=== PATIENT | female | born 1940 | race Caucasian/White ===

== ENCOUNTER 2016-07-02 11:10 | Inpatient (IN) | payer MEDICARE ==
--- NOTE | ~2016-07-02 | HP ---
Unit #: [id number] #: [id number] Patient: ROSALIND YO [id number] [address] [place], [place] [address] [id number] I MR#: [id number] NAME: ROSALIND YO ROOM: 313 Age: 75 Sex: F Admission Date: 07/02/2016 : 1940 Attending Physician: Wilber Dunham M.D. Primary Care Physician: Alberto Cazares D.O. HISTORY AND PHYSICAL CHIEF COMPLAINT Recurrent falls. HISTORY OF PRESENT ILLNESS The patient is a 75-year-old female with history of diabetes, hypertension, and hypothyroidism. Brought to the emergency room from [facility] emergency department with recurrent falls and acute kidney injury and UTI. The patient stated the patient lives at the assisted living home and had a fall on Tuesday night while she was trying to get up from the bed to go to the bathroom. The patient stated that the patient was on the floor for four hours. The patient had recurrent falls again last night x2 and was presented to the emergency room with acute kidney injury and the patient was 79/47 with a sepsis. The patient is being admitted for the above reasons and denies any fever, chills, nausea, and vomiting. The patient complains of urinary frequency and the recurrent UTIs. 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 PAST SURGICAL HISTORY Left foot surgery, bilateral tubal ligation, partial thyroidectomy, resection of benign brain tumor, and C section. ALLERGIES Patient allergic to morphine, Naprosyn, and Neurontin. HOME MEDICATIONS She is on: 1. Xanax. 2. Synthroid. 3. Carbamazepine. 4. Zanaflex. 5. Oxycodone. 6. Lipitor. 7. Glucophage. FAMILY HISTORY Negative for GI or colon disease. SOCIAL HISTORY The patient is originally from [facility]. She is living alone in the [facility]. She stopped smoking 25 years ago. Seldom drinks Unit #: [id number] #: [id number] Patient: ROSALIND YO alcohol. REVIEW OF SYSTEMS Fourteen-point review of systems performed and only pertinent positive findings are described above and remaining are negative. PHYSICAL EXAMINATION GENERAL APPEARANCE: The patient is lying on her bed not in acute distress. VITAL SIGNS: Temperature 98.2, pulse 99, respiratory rate 16, blood pressure 79/47 at the time of arrival, and satting 96% at room air. HEENT: Head atraumatic and normocephalic. Pupils are equal, round, and reactive to light and accommodation. Dry mucous membranes. NECK: Supple. No JVD. LUNGS: Clear to auscultation bilaterally. No rhonchi. No wheezing. HEART: Regular rate and rhythm. ABDOMEN: Soft. Positive bowel sounds. Positive flank tenderness. EXTREMITIES: No cyanosis. No clubbing. NEUROLOGIC: Alert, awake, and oriented. No gross focal motor deficit. DIAGNOSTIC STUDIES LABORATORY: Glucose 127, BUN 48, creatinine 2.8, sodium 128, potassium 3.1, chloride 92, bicarb 21, calcium 8.5, magnesium 2.1, albumin 3.1, total bili 0.6, AST 162, ALT 90, and alkaline phosphatase 120. CK total is 1268 and troponin 0.06. Lactic acid is 2.6. WBC 9.5, hemoglobin 10.9, hematocrit 32.6, and platelets 320. UA shows 3+ leukocyte esterase, 3+ blood, WBCs innumerable, and bacteria 1. IMAGING: CT of the head shows generalized atrophy. No acute intracranial findings. Densely calcified, 2.8 cm mass overlying the left frontal region. This is parafalcine and consistent with a meningioma. It is unchanged since the last study. Postop changes of right mastoidectomy. Small chronic lacunar infarction, right basal ganglia. No acute intracranial findings. CT of the abdomen and pelvis shows no acute findings in the abdomen and pelvis. Postsurgical changes, left lower quadrant; status post hysterectomy; and multilevel degenerative disk disease. Chest x-ray shows low lung volume film with a lordotic disposition. There is no definite acute cardiopulmonary change. X-ray of the L spine shows there is a stable multilevel disk height loss and endplate spurring at L2-3, 3-4, and 4-5 greater than L5-S1. There is a mild facet arthropathy. Chronic sclerotic change, medial left ilium, unchanged. ASSESSMENT AND PLAN 1. UTI. 2. Sepsis. 3. Non-ST elevation [place]. 4. [place]ED[place]. 5. Rhabdomyolysis. PLAN: Admitted the patient to the inpatient with the telemetry. Continue with IV antibiotic with Rocephin. Replace the potassium per protocol and initiate the sepsis protocol as not initiated by the ER physician. Whether patient's ER physician knows about the sepsis protocol or not, Unit #: [id number] #: [id number] Patient: ROSALIND YO does not know. Repeat the lactic acid. Will have the renal consult with the acute kidney injury/rhabdomyolysis and the cardiology consult for evaluation of troponins in a diabetic patient and repeat the labs again in the morning and further recommendations will follow. Dictated by Junior Garcia TD: 07/03/2016 06:03 JOB #: [id number] HISTORY AND PHYSICAL Page 1 of 1 X X HISTORY AND PHYSICAL
--- NOTE | ~2016-07-02 | CO ---
Unit #: [id number] #: [id number] Patient: ROSALIND WILKINS [id number] [address] [place], [place] [address] [id number] I MR#: [id number] NAME: ROSALIND WILKINS ROOM: 313 Age: 75 Sex: F Admission Date: 07/02/2016 : 1940 Attending Physician: Cristina Livingston M.D. Primary Care Physician: Alberto Cazares D.O. Consultation Date: 07/02/2016 CONSULTATION REPORT REASON FOR CONSULTATION Acute on chronic kidney disease. HISTORY OF PRESENT ILLNESS Ms. Wilkins is a 75-year-old female, who presented to the emergency room after having a second syncopal spell in 2 days. She says that both of them occurred in the middle of the night when she was walking from her bedroom to her bathroom and one of those times she was on the ground for several hours. The second time it sounds like she woke up more quickly. The patient has had some mild dysuria, but no gross hematuria. No fevers or chills. She does get recurrent urinary tract infections. Also, she says about a week ago she had a flu-like illness with nausea and vomiting for almost an entire day. She is noted to be on blood pressure medicine and low blood pressure when she got here. She takes lisinopril. She is also on medications for diabetes, for which she has had for several years. She does not use any NSAIDs. She is unaware of any history of kidney stones. No swelling issues or rashes. 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 PAST SURGICAL HISTORY She has had the sarcoma removed, left foot surgery, hysterectomy, appendectomy, partial thyroidectomy, resection of benign brain tumor, , EGD and colonoscopy which showed esophagitis and gastritis. HOME MEDICATIONS Lisinopril 20 mg a day, Xanax 0.5 mg every 12 hours, Synthroid unknown dose daily, carbamazepine 100 mg b.i.d., metformin 500 mg b.i.d., Lipitor 40 mg a day, Percocet p.r.n., Zanaflex p.r.n., and Elavil 25 mg daily. ALLERGIES She has an allergies to morphine, Naprosyn, and Neurontin. FAMILY HISTORY Negative for kidney disease or anyone on dialysis. There does seem to be a family history of recurrent urinary tract infections in her sister's. No GI family history. SOCIAL HISTORY She is originally from [place]. She is a former smoker. Occasionally Unit #: [id number] #: [id number] Patient: ROSALIND WILKINS drinks alcohol, but did drink some before she got sick last week. No drug use. Very supportive family here today. REVIEW OF SYSTEMS A complete 12-point review of systems was completed with the above findings. In addition, no fevers. She does have a headache from her fall with a bump on her head. No vision changes. No blurry vision. No nosebleed. No sore throat. No earache. No chest pain. No palpitations. No cough or hemoptysis. No hematemesis with her vomiting. No bright red blood per rectum or melena. No gross hematuria with her dysuria. No abdominal pain. No swelling. No itching. No flank pain, but she does have chronic back pain. No night sweats or hot flashes. No intolerance to heat or cold. No bleeding issues. No recent weight changes. Unless otherwise indicated, the review of systems was negative. PHYSICAL EXAMINATION VITAL SIGNS: The patient is afebrile, pulse 99, respiratory rate 18, blood pressure 110/51 and blood pressure got as low as 62/26. GENERAL: This is a 75-year-old female, alert and oriented x3, currently in no acute distress. HEENT: Head is normocephalic. She does have a knot on the right posterior lateral skull from her fall. Eyes show pink conjunctivae with no scleral icterus. No nasal drainage or nosebleed. Oropharynx is slightly dry. No thrush. NECK: Shows no rigidity, no JVD. HEART: Regular rate and rhythm with no S3, no rub present. LUNGS: Clear with no wheezing or rhonchi. Breathing is nonlabored. ABDOMEN: Soft, protuberant, nontender. Bowel sounds are present. EXTREMITIES: No lower extremity clubbing, cyanosis, or pitting edema. SKIN: Dry with no rashes. MUSCULOSKELETAL: No joint effusions noted. NEUROLOGIC: Cranial nerves are grossly intact with no gross motor deficits. PSYCHIATRIC: Mood and affect appear normal. DIAGNOSTIC STUDIES LABORATORY RESULTS: CK level this afternoon was 1268. Troponin 0.06. Urinalysis was positive for red blood cells, white blood cells, and bacteria with culture pending. Chemistry noteworthy for a sodium of 128, potassium 3.1, chloride 92, bicarb 21, glucose 127, BUN 48, creatinine 2.8. AST and ALT were high at 162 and 90 respectively with an albumin of 3.1 and a magnesium of 2.1. Lactic acid level was 2.6. CBC showed a white count of 9, hemoglobin of 11, and platelet count of 320. Prior creatinine here at [facility] was 0.9 to 1.3 in late 2016. IMAGING STUDIES: Chest x-ray was unremarkable. CT of the abdomen and pelvis showed unremarkable kidneys. CT of the head showed some atrophy and meningioma. Small chronic lacunar infarct right basal ganglia. ASSESSMENT AND PLAN 1. Acute on probable chronic kidney disease, stage 2. It looks like her baseline creatinine is probably in the low 1 range. This is likely due to her underlying history of hypertension and diabetes. Acute kidney injury Unit #: [id number] #: [id number] Patient: ROSALIND WILKINS looks to be prerenal in nature from probable dehydration from recent nausea and vomiting, lisinopril use, as well as hypotension. In addition, she looks like she has some rhabdomyolysis which is playing a role. We will stop her lisinopril and hydrate aggressively and monitor response. 2. Hypokalemia. This will be replaced both p.o. and IV. We will recheck this later tonight, especially in lieu of her recent syncope to be sure that there are no hypokalemia issues causing arrhythmias. 3. Rhabdomyolysis. Her Lipitor has to be stopped. We will continue hydration. 4. Urinary tract infection, on Rocephin with culture pending. 5. Syncope. We will stop her lisinopril and support her blood pressure with fluids and ask Cardiology to see. 6. Diabetes. Metformin will have to be held with lactic acidosis. 7. Recent nausea and vomiting 1 week ago. 8. Lactic acidosis. Metformin has been stopped. 9. History of sarcoma in the back with chronic pain medications. I certainly wonder if the pain medications are not playing some role in the syncope and hypotension as they certainly can. I would like to thank Dr. Wilber Dunham for this consult and the opportunity to participate in evaluation and care of Ms. Wilkins. Dictated by... Antwon Harmon Jr., M.D. NATALIO/zainab TD: 07/02/2016 23:52 JOB #: [id number] CONSULTATION REPORT Page 1 of 1 X Antwon Harmon MD X CONSULTATION REPORT
--- NOTE | ~2016-07-02 | CT4 ---
[facility] A Service of [facility] RADIOLOGY TEXT RESULTS PATIENT: ROSALIND YO LOCATION: SED : 40 UNIT #: [id number] AGE: [address]: Donnie Roper MD SEX: F ORDER DR: [id number] [address] [address] [id number] MR#: [id number] Acc #: [id number] NAME: ROSALIND YO : 1940 SEX: F STUDY DATE/TIME: 07/02/2016 11:47 UNIT: SED ROOM: STUDY DESCRIPTION: CT Abd and Pelv Wo Cont Attending Physician: Donnie Roper M.D. Ordering Physician: Donnie Roper M.D. Primary Care Physician: Alberto Cazares D.O. MEDICAL IMAGING REPORT This report is preliminary unless electronic signature is present. STUDY CT of the abdomen and pelvis without contrast media. HISTORY SUPPLIED Fell 2 days in a row, low blood pressure, right-sided head pain, low back pain. TECHNIQUE Transaxial imaging of the abdomen and pelvis was performed without contrast media. This CT exam was performed with one or more of the following radiation dose reduction techniques: automatic exposure control, adjustment of mA and/or kV according to patient size, and iterative reconstruction. FINDINGS Scans through the lung bases show no acute findings. There is moderate fibrosis. Atherosclerotic calcifications are present within the coronary arteries. Scans through the liver are normal. Gallbladder is unremarkable. Spleen, adrenal glands, pancreas and both kidneys are normal. No dilated or thickened loops of bowel are identified. Postop changes are seen in the left lower quadrant. The uterus is absent. No adnexal masses or fluid collections are seen. The bladder is unremarkable. There is multilevel degenerative disc disease. CONCLUSION 1. No acute findings in the abdomen pelvis. 2. Postsurgical changes, left lower quadrant. 3. Status post hysterectomy. 4. Multilevel degenerative disc disease. [facility] A Service of [facility] RADIOLOGY TEXT RESULTS PATIENT: ROSALIND YO LOCATION: SED : 40 UNIT #: [id number] AGE: [address]: Donnie Roper MD SEX: F ORDER DR: Dictated by... Fito Roque M.D. THIS IS AN ELECTRONICALLY VERIFIED REPORT Fito Roque M.D. at 07/05/2016 2:44 PM CASSIDY/charan TD: 07/02/2016 13:03 JOB #: [id number] MEDICAL IMAGING REPORT Page 1 of 1
--- NOTE | ~2016-07-02 | HM ---
Unit #: [id number] #: [id number] Patient: ROSALIND YO [id number] [facility]. [facility] [address] [place], [place] [address] [id number] I MR#: [id number] NAME: ROSALIND YO : 1940 SEX: F STUDY DATE/TIME: UNIT: C3A PCU ROOM: [facility] STUDY DESCRIPTION: Attending Physician: Cristina Livingston M.D. Primary Care Physician: Alberto Cazares D.O. CARDIOLOGY REPORT EXAM 24-hour Holter monitor. DATE APPLIED DATE SCANNED 07/06/2016 READ BY [facility] Cardiology. ORDERED BY Dr. Eliel Dunham REASON FOR STUDY HTC. FINDINGS Underlying rhythm is sinus rhythm with an average heart rate of 83 beats per minute, minimum heart rate of 62 beats per minute, and a maximum heart rate of 106 beats per minute. The minimum heart rate of 62 beats per minute is noted at 5:38 a.m. The maximum heart rate of 106 beats per minute is noted at 7:10 p.m. Patient had a 1.66 second pause noted at 5:38 a.m. The patient had 417 single multifocal premature ventricular complex, 31 ventricular couplets, and 12 ventricular bigeminy noted. Patient had three to four beat run of ventricular tachycardia with heart rate ranging from 150-200 beats per minute. The patient had 56 single premature atrial complex noted. The patient had a three-beat run of SVT at heart rate of 156 beats per minute. The patient did not record any symptoms. CONCLUSION 1. Underlying rhythm is normal sinus rhythm with an average heart rate of 83 beats per minute, minimum heart rate of 62 beats per minute, and a maximum heart rate of 106 beats per minute. 2. No sustained atrial or ventricular arrhythmias noted. 3. Longest pause noted was a 1.6 second pause. 4. Frequent single multifocal premature ventricular complex and ventricular couplet noted. The patient had three to four beat run of nonsustained ventricular tachycardia with heart rate ranging from 150 Unit #: [id number] #: [id number] Patient: ROSALIND YO to 200 beats per minute. 5. The patient had a three-beat run of SVT at a heart rate of 156 beats per minute. 6. The patient did not record any symptoms. Dictated by... Tameka Attavar, M.D. PA/ch TD: 07/08/2016 16:05 JOB #: [id number] CARDIOLOGY REPORT Page 1 of 1 X Tameka Lennon MD <ELECTRONICALLY SIGNED> 10/30/16 1429 HOLTER MONITOR REPORT
--- NOTE | ~2016-07-02 | CR72 ---
[facility] A Service of [facility] RADIOLOGY TEXT RESULTS PATIENT: ROSALIND YO LOCATION: SED : 40 UNIT #: [id number] AGE: [address]: Donnie Roper MD SEX: F ORDER DR: [address] [address] [id number] E MR#: [id number] Acc #: [id number] NAME: ROSALIND YO : 1940 SEX: F STUDY DATE/TIME: 07/02/2016 11:50 UNIT: SED ROOM: STUDY DESCRIPTION: CR Chest Single View Portable Attending Physician: Donnie Roper M.D. Ordering Physician: Donnie Roper M.D. Primary Care Physician: Alberto Cazares D.O. MEDICAL IMAGING REPORT This report is preliminary unless electronic signature is present. EXAM Chest portable, 07/02/2016 11:50 hours HISTORY 75-year-old woman who fell once each day the past 2 days with low blood pressure, right-sided head pain, shortness of air, back pain. Possible urinary tract infection with vomiting 3 days ago. COMPARISON 01/16/2012 FINDINGS Portable upright chest demonstrates low lung volumes. The cardiac, mediastinal and hilar contours are stable. The aorta is tortuous but felt likely unchanged when allowing for this technique. There is bibasilar vascular crowding without definite edema, pneumonia or effusion. IMPRESSION Low lung volume film with lordotic positioning. There is no definite acute cardiopulmonary change from 01/16/2012. Dictated by... Janet Cr M.D. THIS IS AN ELECTRONICALLY VERIFIED REPORT Janet Cr M.D. at 07/02/2016 1:56 PM ANGEL/rodrick TD: 07/02/2016 12:49 JOB #: [id number] MEDICAL IMAGING REPORT [facility] A Service [facility] RADIOLOGY TEXT RESULTS PATIENT: ROSALIND YO LOCATION: SED : 40 UNIT #: [id number] AGE: [address]: Donnie Roper MD SEX: F ORDER DR: Page 1 of 1
--- NOTE | ~2016-07-02 | EKG ---
PATIENT: ROSALIND YO UNIT #: [id number] Ventricular Rate: 96 BPM Atrial Rate: 96 BPM P-R Interval: 160 ms QRS Duration: 66 ms Q-T Interval: 354 ms QTC Calculation(Bezet): 447 ms P [place]: 60 degrees Calculated R [place]: 9 degrees Calculated T [place]: 39 degrees Diagnosis Line: Normal sinus rhythm Diagnosis Line: Low voltage QRS Diagnosis Line: Otherwise normal ECG Baseline wander Diagnosis Line: No previous ECGs available Diagnosis Line: Confirmed by BHARATI WONG MD ([id number]) on 07/05/2016 Diagnosis Line: 11:11:44 PM INTERPRETING MD: JUDITH DICKEY
--- NOTE | ~2016-07-02 | EKG ---
PATIENT: ROSALIND YO UNIT #: [id number] Ventricular Rate: 93 BPM Atrial Rate: 93 BPM P-R Interval: 158 ms QRS Duration: 76 ms Q-T Interval: 356 ms QTC Calculation(Bezet): 442 ms P [place]: 61 degrees Calculated R [place]: 27 degrees Calculated T [place]: 41 degrees Diagnosis Line: Normal sinus rhythm Diagnosis Line: Low voltage QRS Diagnosis Line: Borderline ECG Diagnosis Line: When compared with ECG of 02-JUL-2016 10:48, Diagnosis Line: (unconfirmed) Diagnosis Line: No significant change was found Diagnosis Line: Confirmed by LOUISA RIVERA MD ([id number]) on 07/04/2016 Diagnosis Line: 7:23:48 AM INTERPRETING MD: NICOLE DICKEY
--- NOTE | ~2016-07-02 | CO ---
Unit #: [id number] #: [id number] Patient: ROSALIND YO [id number] [address] [place], [place] [address] [id number] I MR#: [id number] NAME: ROSALIND YO ROOM: 313 Age: 75 Sex: F Admission Date: 07/02/2016 : 1940 Attending Physician: Cristina Livingston M.D. Primary Care Physician: Alberto Cazares D.O. CONSULTATION REPORT REASON FOR CONSULTATION Elevated troponin. HISTORY OF PRESENT ILLNESS This is a 75-year-old white female, who was admitted to the hospital after a syncopal episode. She had an episode 2 nights ago where she got out of bed and fell to the floor. She had no prodromal symptoms of chest pain, palpitations, or dizziness. She woke up 4 hours later. On the night prior to her admission, she got up again, went to the bathroom in the middle of night and fell. She struggled to get off the floor. She did have an episode of urinary incontinence. The patient is [place] and drinks only on 's Day. She drink Maite whiskey and afterwards she had a week of nausea and vomiting. She states she had a "bad urinary tract infection for five days." She has not been eating and drinking well. In the emergency room, she was hypotensive with blood pressure as low as 62/26 mmHg. She was treated with IV fluids. Lactic acid elevated at 2.6. Urinalysis positive for urinary tract infection. There was elevation of troponin that has peaked at 0.06. Her EKG shows no acute ischemic changes. From a cardiac standpoint, the patient states she has no prior cardiac history or testing. She is known to have hypertension and diabetes and a remote history of nicotine abuse. She is able to walk with her walker without shortness of breath except when she "walks fast." PAST MEDICAL HISTORY 1. Hypertension. 2. Hypothyroidism. 3. Diabetes mellitus type 2. 4. Spinal stenosis. 5. Cervical lymph node tuberculosis. 6. Former smoker. PAST SURGICAL HISTORY 1. Soft tissue sarcoma resection, status post radiation therapy. 2. Left foot surgery. 3. Bilateral tubal ligation. 4. Benign brain tumor resection. 5. Thyroidectomy. 6. section x2. SOCIAL HISTORY The patient originated from [place] in 1968. She quit smoking more than 10 years ago. There is no illicit drug or alcohol use. Unit #: [id number] #: [id number] Patient: ROSALIND YO FAMILY HISTORY Negative for coronary artery disease. ALLERGIES Morphine, Naprosyn, and gabapentin. HOME MEDICATIONS Xanax 0.5 mg b.i.d., levothyroxine 0.05 mg daily, carbamazepine 100 mg q.h.s., oxycodone/acetaminophen 7.5/325 q.i.d. p.r.n., Lipitor 20 mg daily, Glucophage 500 mg b.i.d. REVIEW OF SYSTEMS CONSTITUTIONAL: Negative for fever or chills. Reports no weight gain or weight loss. HEENT: No headache. No vision changes, difficulty with swallowing. No dizziness. CARDIOVASCULAR: Has no symptoms of angina. Denies palpitations. No paroxysmal nocturnal dyspnea or orthopnea. Reports a syncopal episode. RESPIRATORY: Negative for dyspnea, cough, or hemoptysis. GASTROINTESTINAL: No abdominal pain, nausea, or vomiting. No constipation. No melena. EXTREMITIES: Negative for lower extremity edema. PHYSICAL EXAMINATION VITAL SIGNS: Blood pressure 110/51, heart rate 99, temperature 98.2, and BMI 34. GENERAL: This is a pleasant 75-year-old obese, white female, who is in no acute distress. NEUROLOGIC: She is awake, alert, and oriented. There are no focal weaknesses. NECK: Trachea is midline. No thyromegaly. No lymphadenopathy. No jugular venous distention. LUNGS: Fine rales in the right lung. Left lung clear to auscultation. HEART: S1 and S2. Heart sounds are normal. No murmurs. No rubs or clicks. Regular rate and rhythm. Carotid massage shows no change. ABDOMEN: Soft, nontender with bowel sounds are present. No organomegaly. EXTREMITIES: Without leg edema. Absent pedal pulses. DIAGNOSTIC STUDIES LABORATORY RESULTS: Glucose 127, BUN 48, creatinine 2.8, sodium 128, potassium 3.1, magnesium 2.1, AST 162, ALT 90. CK total 1268, MB 32.4, MB index 2.6, troponin 0.06 to less than 0.03. Lactic acid 2.6. White count 9.5, hemoglobin 10.9, hematocrit 32.6, platelet count 320. IMAGING STUDIES: Chest x-ray shows low lung volume. CT of the abdomen and pelvis shows multilevel degenerative disk disease. No acute findings. CT of the head shows generalized atrophy. There is a 2.8 cm calcified mass in the left frontal region likely a meningioma. CARDIOVASCULAR STUDIES: EKG, normal sinus rhythm with a rate of 93 beats per minute with low-voltage QRS. IMPRESSION 1. Syncope with loss of consciousness, probable postural hypotension. Unit #: [id number] #: [id number] Patient: ROSALIND YO 2. Diabetes mellitus type 2. 3. Peripheral arterial disease. 4. Recent urinary tract infection. 5. Obesity. 6. Acute kidney injury. 7. Rhabdomyolysis. PLAN 1. Cardiology was consulted for elevated troponin. The patient's troponin is nondiagnostic for ischemic heart disease especially in the setting of acute kidney injury. 2. Evaluate left ventricular systolic function with a 2D echocardiogram. 3. Holter monitor to rule out arrhythmias. 4. Fluid replacement. 5. Electrolytes have been replaced per Renal. 6. Obtain thyroid functions. 7. Check BMP. 8. Lipid profile will be obtained. 9. If LV function is abnormal, the patient may need further cardiac testing with stress test. Thank you for allowing us to assist with this patient's care. Dictated by... Guerrero LandPYsabelRYsabelN. for Junior Merchant/zainab TD: 07/03/2016 00:25 JOB #: [id number] CONSULTATION REPORT Page 1 of 1 X Ludwin Guzman APRN X CONSULTATION REPORT
--- NOTE | ~2016-07-02 | CR181 ---
[facility] A Service of [facility] RADIOLOGY TEXT RESULTS PATIENT: ROSALIND YO LOCATION: SED : 40 UNIT #: [id number] AGE: [address]: Donnie Roper MD SEX: F ORDER DR: [id number] [address] [address] [id number] E MR#: [id number] Acc #: [id number] NAME: ROSALIND YO : 1940 SEX: F STUDY DATE/TIME: 07/02/2016 11:50 UNIT: SED ROOM: STUDY DESCRIPTION: CR Lumbar Spine 2 or 3 Views Attending Physician: Donnie Roper M.D. Ordering Physician: Donnie Roper M.D. Primary Care Physician: Alberto Cazares D.O. MEDICAL IMAGING REPORT This report is preliminary unless electronic signature is present. EXAM Lumbar spine series, 07/02/2016 11:50 hours HISTORY Patient fell on 06/30/2016 and 07/01/2016 with low back pain, abdominal pain, vomiting and shortness of air. COMPARISON CT abdomen and pelvis 07/02/2016, 03/11/2016 and MRI lumbar spine 04/17/2013. FINDINGS AP and lateral views demonstrate mild rightward scoliosis with degenerative disc disease and facet arthropathy L4-5, L5-S1 greater than L3-4. There is some sclerotic change at the medial left ilium abutting the left sacroiliac joint, not appreciably changed dating back to at least 10/05/2013, likely chronic and benign. IMPRESSION 1. There is a stable multilevel disc height loss and endplate spurring at L2-3, 3-4, 4-5 greater than L5-S1. There is mild facet arthropathy. There is no compression fracture or malalignment. No appreciable change from MRI 04/17/2013. 2. Chronic sclerotic change medial left ilium unchanged. Dictated by... Janet Cr M.D. THIS IS AN ELECTRONICALLY VERIFIED REPORT Janet Cr M.D. at 07/02/2016 1:56 PM ANGEL/rodrick [facility] A Service of [facility] RADIOLOGY TEXT RESULTS PATIENT: ROSALIND YO [place] [facility] [place]IT #: [id number] AGE: [address]: Donnie Roper MD SEX: F ORDER DR: TD: 07/02/2016 12:55 JOB #: [id number] MEDICAL IMAGING REPORT Page 1 of 1
--- NOTE | ~2016-07-02 | DS ---
Unit #: [id number] #: [id number] Patient: ROSALIND YO [id number] [address] [address] [id number] I MR#: [id number] NAME: ROSALIND YO ROOM: 313 Age: 75 Sex: F Admission Date: 07/02/2016 : 1940 Discharge Date: Attending Physician: Cristina Livingston M.D. Primary Care Physician: Alberto Cazares D.O. DISCHARGE SUMMARY DISCHARGE DIAGNOSES 1. Acute kidney injury with chronic kidney disease stage 2. 2. Urinary tract infection with Klebsiella. 3. Syncope secondary to postural hypotension. 4. Postural hypotension. 5. Transaminitis. 6. Hypothyroidism. 7. Hypomagnesemia. 8. Diabetes mellitus type 2, controlled. 9. Hypertension, mildly elevated. 10. Sepsis from urinary tract infection, resolved. 11. Elevated troponin, nonspecific. 12. Mild rhabdomyolysis. 13. Obesity. 14. Peripheral vascular disease. 15. History of spinal stenosis. 16. Cervical lymph node tuberculosis. 17. Former smoker. CONSULTATIONS 1. Dr. Lennon. 2. Dr. Harmon. PROCEDURES None. DIAGNOSTIC TESTING LAB DATA: Glucose 114, sodium 141, potassium 4.2, creatinine 1, AST 126, ALT 99, alkaline phosphatase 128, magnesium 1.4, albumin 2.5. WBC 7.7, hemoglobin 9.7, platelets 349. Urine culture is growing Klebsiella pneumonia. Blood culture is negative. ALLERGIES Morphine. DISCHARGE MEDICATIONS 1. Tegretol XR 100 mg at bedtime. 2. Zanaflex 4 mg at bedtime. 3. Synthroid 0.05 mg p.o. daily. 4. Levaquin 750 p.o. daily for 4 more days. HOSPITALIZATION COURSE A 75 year old admitted because of urinary tract infection. Unit #: [id number] #: [id number] Patient: ROSALIND YO Sepsis with urinary tract infection. Sepsis resolved. Cultures are growing Klebsiella. Patient was given IV Rocephin. Patient will be discharged on Levaquin for four more days. Non-ST AL elevation type 2. Cardiology saw the patient with elevated troponin. Only medical management. Acute kidney injury with chronic kidney disease stage 2. Patient received IV fluids. Currently creatinine is stable. Mild rhabdomyolysis. The patient received IV fluids. Currently CK is trending down. Hypomagnesemia. Replaced with protocol. Moderate protein malnutrition. Continue with high-protein diet. Syncope secondary to postural hypotension. The patient received IV fluids. Postural hypotension resolved. Hypertension, mildly elevated. The patient will follow outpatient with her PCP. Currently no medications have been added. Because of recurrent urinary tract infection, the patient will see a urologist of her choice as an outpatient. Hold metformin and statins because of elevated CPK and lactic acidosis. Moderate protein malnutrition. DISCHARGE PLAN 1. The patient will be discharged home with home health. 2. Follow with family physician in 1 week. 3. Follow with urologist of her choice for recurrent urinary tract infection. NOTE: Discharge time taken is 31 minutes. Dictated by... Junior Hammer/lubna TD: 07/05/2016 14:40 JOB #: [id number] Unit #: [id number] #: [id number] Patient: ROSALIND YO DISCHARGE SUMMARY Page 1 of 1 X Cristina Livingston MD X DISCHARGE SUMMARY
--- NOTE | ~2016-07-02 | CT71 ---
[facility] A Service of [facility] RADIOLOGY TEXT RESULTS PATIENT: ROSALIND YO LOCATION: SED : 40 UNIT #: [id number] AGE: [address]: Donnie Roper MD SEX: F ORDER DR: [id number] [address] [address] [id number] E MR#: [id number] Acc #: [id number] NAME: ROSALIND YO : 1940 SEX: F STUDY DATE/TIME: 07/02/2016 11:29 UNIT: SED ROOM: STUDY DESCRIPTION: CT Head Wo Contrast Attending Physician: Donnie Roper M.D. Ordering Physician: Donnie Roper M.D. Primary Care Physician: Alberto Cazares D.O. MEDICAL IMAGING REPORT This report is preliminary unless electronic signature is present. EXAM CT brain without contrast, 07/02/2016. COMPARISON Examination, 01/16/2012. HISTORY Fell 2 days in a row now with low blood pressure, right-sided head pain. TECHNIQUE Transaxial imaging of the brain was performed without contrast and compared to the patient's most recent study of 2011. This CT exam was performed with one or more of the following radiation dose reduction techniques: automatic exposure control, adjustment of mA and/or kV according to patient size, and iterative reconstruction. FINDINGS There is generalized enlargement of the ventricles and CSF-containing spaces. Redemonstrated is a extraaxial densely calcified mass arising adjacent to the falx in the left frontal lobe. It measures 2.8 cm. It does not have any significant mass effect or edema. No intra or extraaxial fluid collections are present. Small chronic lacunar infarction is seen in the right basal ganglia, stable. Bone windows are reviewed. Sinuses appear clear. Mastoid air cells are hypoplastic. The patient appears to have had a prior right-sided mastoidectomy. CONCLUSION 1. Generalized atrophy. No acute intracranial findings. 2. 2.8 cm densely calcified mass overlying the left frontal region. This is parafalcine and consistent with a meningioma. It is [facility] A Service of [facility] RADIOLOGY TEXT RESULTS PATIENT: ROSALIND YO LOCATION: SED : 40 UNIT #: [id number] AGE: [address]: Donnie Roper MD SEX: F ORDER DR: unchanged since the last study. There is no evidence of underlying edema or mass effect. 3. Postop changes of right mastoidectomy. 4. Small chronic lacunar infarction right basal ganglia. 5. No acute intracranial findings. Dictated by... Fito Roque M.D. THIS IS AN ELECTRONICALLY VERIFIED REPORT Fito Roque M.D. at 07/05/2016 2:44 PM CASSIDY/romeo TD: 07/02/2016 12:46 JOB #: [id number] MEDICAL IMAGING REPORT Page 1 of 1
[~2016-07-02 11:10] MED LIST: ACETAMINOOPHEN-1 TAB PO; ACTONEL; ALPRAZOLAM; ALPRAZOLAM PO; ASPIRIN81 MG PO; ATENOLOL PO; BACTRIM DS TABL1 TA1 PO; CARBATROL100 MG PO; CELEBREX; CELEXA20 MG PO; CIPRO PO; DARVOCET-N 1001 TAB; DARVOCET-N 1001 TAB PO; DOCUSATE SODIU100 MG PO; FLAGYL; GLUCOPHAGE XR500 MG PO; HYDROCHLOROTH12.5 MG PO; IBUPROFEN; KLOR-CON 88 ME1 PO; LEVOTHYROXINE100 MCG PO; LEVOTHYROXINE25 MCG PO; LIPITOR20 MG PO; LISINOPRIL5 MG PO; LORTAB 5/500 TA1 TA1 PO; LYRICA25 MG PO; MAXZIDE 75/50 T1 TA1 PO; METFORMIN HCL500 M1 PO; METHYLPREDNISOLO4 MG PO; MICRONASE5 M2 PO; MIRALAX17 G2 PO; MOTRIN600 M1 PO; OMEPRAZOLE20 M2 PO; OXYCODON-ACETA1 EAC1 PO; OXYCODONE-APAP1 EAC4 PO; PAIN PATCH; POLYTRIM EYE DR10 ML OP; PRAVASTATIN SOD40 MG PO; PYRIDIUM100 MG PO; ROCEPHIN1 G/VIA1 IV; SYNTHROID25 MCG PO; TEA TREE TP; TENORMIN50 MG PO; TRIAMTERENE/HCTZ; VICODIN 5/500 T1 TAB PO; VITAMIN D50000 UNIT PO; VOLTAREN75 MG PO; XANAX0.5 MG PO; ZANAFLEX PO; ZANAFLEX4 M1 PO; ZOFRAN2 MG/M1 PO; [UNRECOGNIZED DRUG - OTHER] PO
[2016-07-02 11:12] LABS: BASOPHIL% 0.3 % (0-2.5); EOSINOPHIL# 0.1 X10e3 (0-0.7); EOSINOPHIL% 0.6 % (0.0-7.0); HEMATOCRIT 32.6 % (35.0-45.0); HEMOGLOBIN 10.9 gm/dL (12.0-16.0); LYMPHOCYTE# 1.4 X10e3 (1.0-3.5); LYMPHOCYTE% 14.9 % (17.0-45.0); MEAN CELL VOLUME 90.5 FL (83-96); MEAN CORPUSCULAR HEMOGLOBIN 30.2 PG (28-34); MEAN CORPUSCULAR HGB CONC 33.3 g/dL (30-36); MEAN PLATELET VOLUME 6.9 FL (6.5-11.5); MONOCYTE# 0.8 X10e3 (0-1.0); MONOCYTE% 8.9 % (3.0-12.0); NEUTROPHIL# 7.2 X10e3 (1.5-7.1); NEUTROPHIL% 75.3 % (40-75); PLATELET COUNT 320 X10e3 (140-420); RED CELL DISTRIBUTION WIDTH 13.6 % (11.0-15.5); WHITE BLOOD COUNT 9.5 X10e3 (4.0-10.5)
[2016-07-02 11:15] LABS: DIFF IND NO
[2016-07-02 11:39] LABS: ALBUMIN SERUM 3.1 g/dL (3.5-5.0); BILIRUBIN,TOTAL 0.6 mg/dL (0.2-2.0); BUN/CREATININE RATIO 17.14; CALCIUM SERUM 8.5 mg/dL (8.4-10.2); CREATININE SERUM 2.8 mg/dL (0.6-1.4); GLOM FILT RATE Estimated 15.9 mL/min (>60); MAGNESIUM 2.1 mg/dL (1.6-3.0); POTASSIUM 3.1 mmol/L (3.5-5.1); PROTEIN TOTAL SERUM 7.5 g/dL (6.0-8.3)
[2016-07-02 11:49] LABS: URINE APPEARANCE TURBID; URINE BLOOD 3+ (NEG); URINE COLOR YELLOW; URINE GLUCOSE NEG (NORM); URINE KETONE TRACE (NEG); URINE LEUKOCYTE ESTERASE 3+ (NEG); URINE NITRATE NEG (NEG); URINE PROTEIN 3+ (NEG); URINE SOURCE CATH
[2016-07-02 12:03] LABS: MICRO INDICATED? YES; URINE BILIRUBIN NEG (NEG)
[2016-07-02 12:04] LABS: CULTURE INDICATED? YES; URINE BACTERIA 1+ (NEG); URINE SQUAMOUS EPITHELIAL CELL FEW /[HPF]; URINE WBC INNUM /[HPF] (0-5)
[2016-07-02 15:17] LABS: %MB 2.6 % (0.0-4.0); MB 32.4 ng/ml
[2016-07-02 23:17] LABS: MAGNESIUM 1.9 mg/dL (1.6-3.0); POTASSIUM 3.8 mmol/L (3.5-5.1)
[2016-07-03 05:25] LABS: HEMATOCRIT 26.1 % (35.0-45.0); MEAN CELL VOLUME 90.2 FL (83-96); MEAN CORPUSCULAR HEMOGLOBIN 30.2 PG (28-34); MEAN CORPUSCULAR HGB CONC 33.4 g/dL (30-36); MEAN PLATELET VOLUME 6.6 FL (6.5-11.5); RED BLOOD COUNT 2.89 X10e (3.90-5.30); RED CELL DISTRIBUTION WIDTH 13.7 % (11.0-15.5); WHITE BLOOD COUNT 6.5 X10e3 (4.0-10.5)
[2016-07-03 05:59] LABS: HEMOGLOBIN 8.7 gm/dL (12.0-16.0)
[2016-07-03 06:44] LABS: THYROID STIMULATING HORMONE 0.79 uIU/ml (0.34-5.60)
[2016-07-03 06:51] LABS: FREE THYROXIN (T4) 1.1 ng/dL (0.58-1.64)
[2016-07-03 07:01] LABS: CHOLESTEROL 99 mg/dL (0-200); HDL CHOLESTEROL 21 mg/dL (35-95); LDL CHOLESTEROL 50 mg/dL (-130); LDL/HDL RATIO 2 RATIO (0-4); TRIGLYCERIDES 138 mg/dL (10-160)
[2016-07-03 07:17] LABS: BUN/CREATININE RATIO 19.56; CALCIUM SERUM 7.2 mg/dL (8.4-10.2); CREATININE SERUM 2.3 mg/dL (0.6-1.4); GLOM FILT RATE Estimated 20.1 mL/min (>60); MAGNESIUM 1.8 mg/dL (1.6-3.0); POTASSIUM 3.9 mmol/L (3.5-5.1)
[2016-07-04 06:05] LABS: HEMATOCRIT 26.5 % (35.0-45.0); HEMOGLOBIN 8.7 gm/dL (12.0-16.0); MEAN CELL VOLUME 90.7 FL (83-96); MEAN CORPUSCULAR HEMOGLOBIN 29.7 PG (28-34); MEAN CORPUSCULAR HGB CONC 32.7 g/dL (30-36); MEAN PLATELET VOLUME 6.9 FL (6.5-11.5); RED BLOOD COUNT 2.93 X10e (3.90-5.30); RED CELL DISTRIBUTION WIDTH 13.7 % (11.0-15.5); WHITE BLOOD COUNT 6.2 X10e3 (4.0-10.5)
[2016-07-04 06:29] LABS: ALBUMIN SERUM 2.5 g/dL (3.5-5.0); BILIRUBIN,TOTAL 0.3 mg/dL (0.2-2.0); BUN/CREATININE RATIO 19.37; CALCIUM SERUM 7.9 mg/dL (8.4-10.2); CREATININE SERUM 1.6 mg/dL (0.6-1.4); GLOM FILT RATE Estimated 31.2 mL/min (>60); PROTEIN TOTAL SERUM 6.3 g/dL (6.0-8.3)
[2016-07-05 08:18] LABS: BASOPHIL# 0.1 X10e3 (0-0.3); BASOPHIL% 0.9 % (0-2.5); EOSINOPHIL# 0.2 X10e3 (0-0.7); EOSINOPHIL% 2.8 % (0.0-7.0); HEMATOCRIT 29.6 % (35.0-45.0); HEMOGLOBIN 9.7 gm/dL (12.0-16.0); LYMPHOCYTE# 1.9 X10e3 (1.0-3.5); LYMPHOCYTE% 24.3 % (17.0-45.0); MEAN CELL VOLUME 91.3 FL (83-96); MEAN CORPUSCULAR HEMOGLOBIN 29.8 PG (28-34); MEAN CORPUSCULAR HGB CONC 32.6 g/dL (30-36); MEAN PLATELET VOLUME 6.4 FL (6.5-11.5); MONOCYTE# 0.6 X10e3 (0-1.0); MONOCYTE% 7.6 % (3.0-12.0); NEUTROPHIL% 64.4 % (40-75); PLATELET COUNT 349 X10e3 (140-420); RED BLOOD COUNT 3.24 X10e (3.90-5.30); WHITE BLOOD COUNT 7.7 X10e3 (4.0-10.5)
[2016-07-05 08:19] LABS: DIFF IND YES
[2016-07-05 08:37] LABS: PLATELET ESTIMATE NORMAL (NORMAL)
[2016-07-05 08:38] LABS: ANISOCYTOSIS SL
[2016-07-05 08:51] LABS: ALBUMIN SERUM 2.5 g/dL (3.5-5.0); BILIRUBIN,TOTAL 0.4 mg/dL (0.2-2.0); CALCIUM SERUM 8.3 mg/dL (8.4-10.2); GLOM FILT RATE Estimated 55.1 mL/min (>60); MAGNESIUM 1.4 mg/dL (1.6-3.0); POTASSIUM 4.2 mmol/L (3.5-5.1); PROTEIN TOTAL SERUM 5.9 g/dL (6.0-8.3)
[2016-07-05 09:04] LABS: ALBUMIN SERUM 2.5 g/dL (3.5-5.0); BILIRUBIN, DIRECT 0.1 mg/dL (0.0-0.2); BILIRUBIN,INDIRECT 0.1 mg/dL (0.0-0.9); BILIRUBIN,TOTAL 0.2 mg/dL (0.2-2.0); PROTEIN TOTAL SERUM 5.8 g/dL (6.0-8.3)
[2016-07-05] MEDS ORDERED: LEVAQUIN250 MG PO (14:06)
== END 2016-07-05 18:10 | disposition home health service (06) | DRG 871 ==
LOC: SED 11:10 → C3A PCU 16:28
PROVIDERS: Emergency Medicine; Internal Medicine; Internal Medicine Cardiovascular Disease
PROC: B24BYZZ Ultrasonography of Heart with Aorta using Other Contrast (ICD-10-PCS; principal; 2016-07-03)
DX: A41.9 Sepsis, unspecified organism (principal); I21.4 Non-ST elevation (NSTEMI) myocardial infarction; N17.0 Acute kidney failure with tubular necrosis; E44.0 Moderate protein-calorie malnutrition; M62.82 Rhabdomyolysis; E87.2 Acidosis; E83.42 Hypomagnesemia; N39.0 Urinary tract infection, site not specified; E87.1 Hypo-osmolality and hyponatremia; W06.XXXA Fall from bed, initial encounter; E03.9 Hypothyroidism, unspecified; Z87.891 Personal history of nicotine dependence; Z86.11 Personal history of tuberculosis; Z98.51 Tubal ligation status; I95.1 Orthostatic hypotension; I73.9 Peripheral vascular disease, unspecified; E66.9 Obesity, unspecified; I12.9 Hypertensive chronic kidney disease with stage 1 through stage 4 chronic kidney disease, or unspecified chronic kidney disease; E11.22 Type 2 diabetes mellitus with diabetic chronic kidney disease; N18.2 Chronic kidney disease, stage 2 (mild); E87.6 Hypokalemia; Z85.89 Personal history of malignant neoplasm of other organs and systems; B96.1 Klebsiella pneumoniae [K. pneumoniae] as the cause of diseases classified elsewhere; R74.0 Nonspecific elevation of levels of transaminase and lactic acid dehydrogenase [LDH]; M48.00 Spinal stenosis, site unspecified; Z68.34 Body mass index [BMI] 34.0-34.9, adult; R74.9 Abnormal serum enzyme level, unspecified
CPT/HCPCS: 36415; 51701; 70450; 71010; 72100; 74176; 80048; 80053; 80061; 80076; 81003; 82550; 82553; 82947; 83605; 83735; 83880; 84132; 84439; 84443; 84484; 85025; 85027; 87040; 87086; 87088; 87186; 93005; 93225; 93226; 93306; 94760; 96374; 97116; 97162; 97166; 97530; 97535; 99291; G8978-GP; G8979-GP; G8987-GO; G8988-GO; J0696; J2405; J3475